=== PATIENT | female | born 1945 | race Caucasian/White ===

== ENCOUNTER 2018-01-08 16:38 | Inpatient (IN) | payer MEDICARE, OTHER ==
[~2018-01-08] VITALS: Ht 154.9 cm; Wt 43.8 kg
--- NOTE | 2018-01-08 17:36 | EKG ---
[address] [address] Test Date: 2018-01-08 Test Time: 17:33:35 Pat Name: OSCAR BORRERO Department: Room: Gender: F Metallurgical Engineer: : 1945 Requested By: DASHA PRAJAPATI Order Number: [id number] Reading MD: Yordan Walker MD Measurements Intervals [place] Rate: 67 P: 52 DE: 144 QRS: 73 QRSD: 78 T: 38 QT: 410 QTc: 436 Interpretive Statements SINUS RHYTHM Electronically Signed On 01-13-2018 11:02:34 MEDICAL STAFF CREDENTIALING COORDINATOR by Yordan Walker MD
[2018-01-08 17:38] LABS: BASO % 1 % (0-3); EOS # 0.1 x10^3/uL (0.0-0.7); EOS % 2 % (0-3); HEMATOCRIT 38.2 % (36.0-47.0); HEMOGLOBIN 12.7 g/dL (12.0-15.5); LYMPH # 1.4 x10^3/uL (1.0-4.8); LYMPH % 23 % (24-48); MEAN CORPUSCULAR HEMOGLOBIN 31 pg (25-35); MEAN CORPUSCULAR HGB CONC 33 g/dL (31-37); MEAN CORPUSCULAR VOLUME 94 fL (79-100); MONO # 0.9 x10^3/uL (0.0-1.1); MONO % 15 % (0-9); NEUT # 3.7 x10^3uL (1.8-7.7); NEUT % 60 % (31-73); PLATELET COUNT 164 x10^3/uL (140-400); RED BLOOD COUNT 4.08 x10^6/uL (3.50-5.40); WHITE BLOOD COUNT 6.2 x10^3/uL (4.0-11.0)
[2018-01-08 17:52] LABS: ALBUMIN 3.4 g/dL (3.4-5.0); CALCIUM 8.8 mg/dL (8.5-10.1); CREATININE 0.8 mg/dL (0.6-1.0); GFR 70.1; MAGNESIUM 2.2 mg/dL (1.8-2.4); POTASSIUM 3.5 mmol/L (3.5-5.1); TOTAL BILIRUBIN 0.4 mg/dL (0.2-1.0); TOTAL PROTEIN 6.8 g/dL (6.4-8.2)
--- NOTE | 2018-01-08 18:46 | RAD ---
EXAM: Chest, single view. HISTORY: Mental status changes. Chest pain COMPARISON: None. FINDINGS: A frontal view of the chest is obtained. There is no infiltrate, pleural effusion or pneumothorax. The heart is normal in size. There is suspected left infrahilar atelectasis. IMPRESSION: Suspected left infrahilar atelectasis. Electronically signed by: Sandra Romano MD (01/08/2018 6:43 PM) [facility]
[2018-01-08] MEDS ORDERED: IV NORMAL SALINE 1,000ML 1,000 ML IV ONE (19:30)
[2018-01-08] MEDS ORDERED: cefTRIAXone SODIUM 1 GM VIAL IV ONE (19:32)
[2018-01-08] MEDS ORDERED: IV NORMAL SALINE 50ML 50 ML ONE (19:32)
[2018-01-08] MEDS ORDERED: IV NORMAL SALINE 1,000ML 1,000 ML IV SCH (19:45)
[2018-01-08] MEDS ORDERED: ACETAMINOPHEN 325 MG TABLET PO PRN (19:45)
[2018-01-08] MEDS ORDERED: ONDANSETRON PF 4 MG/2 ML VIAL. IV PRN (19:45)
--- NOTE | 2018-01-08 19:53 | PHYS DOC ---
Adult General Chief Complaint Chief Complaint Confusion HPI HPI pleasant 72 years old female with history of dementia was seen and evaluated by her primary care provider diagnosed with UTI based on Keflex and Zyprexa for confusion that started 2 days ago most of the history was taken from the family who stated there are worried about her rashes seen horses in the living room stay in up all night not sleeping very much from the family there is no other symptoms Review of Systems Review of Systems Very limited due to patient's mental status Current Medications Current Medications Current Medications Medications (Trade) Dose Ordered Sig/Dano Start Time Stop Time Status Last Admin Dose Admin Ceftriaxone Sodium 1 gm/ Sodium Chloride 50 ml @ 100 mls/hr 1X ONCE 01/08/18 19:30 01/08/18 19:59 Ceftriaxone Sodium (Rocephin) 1 gm STK-MED ONCE 01/08/18 19:32 01/08/18 19:33 DC Sodium Chloride 50 ml @ As Directed STK-MED ONCE 01/08/18 19:32 01/08/18 19:33 DC Allergies Allergies Allergies Coded Allergies Type Severity Reaction Last Updated Verified Penicillins Allergy Unknown 01/08/18 Yes acetaminophen Allergy Unknown 01/08/18 Yes amitriptyline Allergy Unknown 01/08/18 Yes aspirin Allergy Unknown 01/08/18 Yes caffeine Allergy Unknown 01/08/18 Yes codeine Allergy Unknown 01/08/18 Yes cyclobenzaprine Allergy Unknown 01/08/18 Yes fentanyl Allergy Unknown 01/08/18 Yes iodine Allergy Unknown 01/08/18 Yes morphine Allergy Unknown 01/08/18 Yes orphenadrine Allergy Unknown 01/08/18 Yes oxycodone Allergy Unknown 01/08/18 Yes pantoprazole Allergy Unknown 01/08/18 Yes povidone-iodine Allergy Unknown 01/08/18 Yes propoxyphene Allergy Unknown 01/08/18 Yes soap Allergy Unknown 01/08/18 Yes tetanus toxoid, adsorbed Allergy Unknown 01/08/18 Yes Physical Exam Physical Exam ] HENT: Normocephalic, atraumatic, bilateral external ears normal, oropharynx dry , no oral exudates, nose normal. [] Eyes: PERRLA, EOMI, conjunctiva normal, no discharge. [] Neck: Normal range of motion, no tenderness, supple, no stridor. [] Cardiovascular:Heart rate regular rhythm, no murmur [] Lungs & Thorax: Bilateral breath sounds clear to auscultation [] Abdomen: Bowel sounds normal, soft, no tenderness, no masses, no pulsatile masses. [] Skin: Warm, dry, no erythema, no rash. [] Back: No tenderness, no CVA tenderness. [] Extremities: No tenderness, no cyanosis, no clubbing, ROM intact, no edema. [] Neurologic: Alert and oriented X 3, normal motor function, normal sensory function, no focal deficits noted. [] Psychologic: Affect normal, judgement normal, mood normal. [] Current Patient Data Vital Signs Vital Signs Date Time Temp Pulse Resp B/P (MAP) Pulse Ox O2 Delivery O2 Flow Rate FiO2 01/08/18 16:38 98.1 63 18 98 Room Air Lab Results Laboratory Tests Test 01/08/18 17:20 White Blood Count 6.2 x10^3/uL (4.0-11.0) Red Blood Count 4.08 x10^6/uL (3.50-5.40) Hemoglobin 12.7 g/dL (12.0-15.5) Hematocrit 38.2 % (36.0-47.0) Mean Corpuscular Volume 94 fL (79-100) Mean Corpuscular Hemoglobin 31 pg (25-35) Mean Corpuscular Hemoglobin Concent 33 g/dL (31-37) Red Cell Distribution Width 13.0 % (11.5-14.5) Platelet Count 164 x10^3/uL (140-400) Neutrophils (%) (Auto) 60 % (31-73) Lymphocytes (%) (Auto) 23 % (24-48) L Monocytes (%) (Auto) 15 % (0-9) H Eosinophils (%) (Auto) 2 % (0-3) Basophils (%) (Auto) 1 % (0-3) Neutrophils # (Auto) 3.7 x10^3uL (1.8-7.7) Lymphocytes # (Auto) 1.4 x10^3/uL (1.0-4.8) Monocytes # (Auto) 0.9 x10^3/uL (0.0-1.1) Eosinophils # (Auto) 0.1 x10^3/uL (0.0-0.7) Basophils # (Auto) 0.0 x10^3/uL (0.0-0.2) Sodium Level 139 mmol/L (136-145) Potassium Level 3.5 mmol/L (3.5-5.1) Chloride Level 103 mmol/L (98-107) Carbon Dioxide Level 29 mmol/L (21-32) Anion Gap 7 (6-14) Blood Urea Nitrogen 25 mg/dL (7-20) H Creatinine 0.8 mg/dL (0.6-1.0) Estimated GFR (Cockcroft-Gault) 70.1 BUN/Creatinine Ratio 31 (6-20) H Glucose Level 88 mg/dL (70-99) Calcium Level 8.8 mg/dL (8.5-10.1) Magnesium Level 2.2 mg/dL (1.8-2.4) Total Bilirubin 0.4 mg/dL (0.2-1.0) Aspartate Amino Transferase (AST) 23 U/L (15-37) Alanine Aminotransferase (ALT) 23 U/L (14-59) Alkaline Phosphatase 85 U/L (46-116) Total Protein 6.8 g/dL (6.4-8.2) Albumin 3.4 g/dL (3.4-5.0) Albumin/Globulin Ratio 1.0 (1.0-1.7) EKG EKG [] Radiology/Procedures Radiology/Procedures [] Course & Med Decision Making Course & Med Decision Making Pertinent Labs and Imaging studies reviewed. (See chart for details) [] Final Impression Final Impression Family refused psych consult requested to be admitted to medicine I discussed her case with the psychiatrist on-call who recommended to give IV fluids and IV antibiotic treatment for UTI and if she does not improve they will be happy to see her Psychiatry also stated that they do not mind seems and Zyprexa or Haldol for delirium induced by UTI[] Problems: (1) Delirium due to another medical condition Dragon Disclaimer Dragon Disclaimer This electronic medical record was generated, in whole or in part, using a voice recognition dictation system. NOMI MCPHERSON MD Jan 08, 2018 19:53
[2018-01-08 20:32] LABS: BACTERIA,URINE 0 /HPF (0-FEW); BILIRUBIN,URINE NEG (NEG); CLARITY,URINE CLEAR; COLOR,URINE YELLOW; GLUCOSE,URINE NEG (NEG); NITRITE,URINE NEG (NEG); RBC,URINE 0 /HPF (0-2); SQUAMOUS EPITHELIAL CELL,UR OCC /LPF; UROBILINOGEN,URINE 0.2 mg/dL (0.2 mg/dL); WBC,URINE OCC /HPF (0-4)
--- NOTE | 2018-01-08 20:50 | NUR ---
ADMISSION: The patient, OSCAR BORRERO, 72 y/o, F admitted by ADRIANA OGLESBY DO, was given written information regarding hospital policies, unit procedures and contact persons. Pt arrived to room 124 via gurney, accompanied by [facility], ED staff, and family. Pt here for increased confusion and UTI, failed outpatient therapy. Pt had been prescribed Keflex PO by her PCP and family reports she has taken 3 doses, but her confusion is worsened and pt is having visual hallucinations (seeing horses in the living room) as well as not sleeping at night. Pt lives at home with her . Their son, Mikhail, is involved but lives over an hour away. Family wishes to speak with insurance case manager about possible HH support, consult placed. Pt received Rocephin 1gm IV and has 1L NS bolus running. Pt sleepy, A/O self only but cooperative with assessment and cares. PMH and home meds obtained from family. Bed in lowest position with alarm set for safety. Call light in reach. Will monitor. Valuables were checked and logged.
[2018-01-08 20:58] VITALS: BP 168/90
[2018-01-08] MEDS ORDERED: CEPH500C PO (21:59)
[2018-01-08] MEDS ORDERED: OLAN2.5T11 PO (21:59)
[2018-01-08] MEDS ORDERED: DULO30CA43 PO (21:59)
[2018-01-08] MEDS ORDERED: POLY255P PO (21:59)
[2018-01-08] MEDS ORDERED: MULT1TAB52 PO (21:59)
[2018-01-08] MEDS ORDERED: CALC1TAB67 PO (21:59)
[2018-01-08 22:42] VITALS: BP 138/89
[2018-01-09 05:03] VITALS: BP 146/79
[2018-01-09] MEDS: OLANZapine 5 MG TABLET PO SCH (09:00)
[2018-01-09 10:51] VITALS: BP 173/85
[2018-01-09 14:50] VITALS: BP 120/74
[2018-01-09] MEDS ORDERED: IV NORMAL SALINE 1,000ML 1,000 ML IV SCH (15:55)
--- NOTE | 2018-01-09 16:03 | PDOC1 ---
History and Physical Date of Admission: Date of Admission: 01/09/18 Chief Complaint: Chief Complain: UTI, confusion Source: Source: Caregiver, Chart review, Patient HPI: HPI: Pt is pleasant 72 years old female with history of dementia was seen and evaluated by her primary care provider Saturday diagnosed with UTI placed on Keflex and Zyprexa for confusion that started 2 days ago. Most of the history was taken from the ED chart and multiple family members at bedside. They report that their primary concern is the rapid worsening of patient's dementia who began hallucinating/sundowning at night a few nights ago patient reportedly seeing horses in the living room and staying up all hours not sleeping very much. From the patient and family there are no other symptoms. Patient placed on rocephin in ED and on admission, family reports patient mentation greatly improved. UA unremarkable here her labs indicate hypovolemia otherwise unremarkable. I find patient lying in bed with multiple family members at bedside. They reportedly refused [facility] admission which is reportedly why patient was sent here initially. All deny any new/worsening symptoms. Past Medical History: PMH: Only reported PMH is dementia Past Surgical History: PSH: no pertinent Social History: Smoke: No Alcohol: none Drugs: None Allergies: Allergies: Coded Allergies: Penicillins (Verified Allergy, Unknown, 01/08/18) acetaminophen (Verified Allergy, Unknown, 01/08/18) amitriptyline (Verified Allergy, Unknown, 01/08/18) aspirin (Verified Allergy, Unknown, 01/08/18) caffeine (Verified Allergy, Unknown, 01/08/18) codeine (Verified Allergy, Unknown, 01/08/18) cyclobenzaprine (Verified Allergy, Unknown, 01/08/18) fentanyl (Verified Allergy, Unknown, 01/08/18) iodine (Verified Allergy, Unknown, 01/08/18) morphine (Verified Allergy, Unknown, 01/08/18) orphenadrine (Verified Allergy, Unknown, 01/08/18) oxycodone (Verified Allergy, Unknown, 01/08/18) pantoprazole (Verified Allergy, Unknown, 01/08/18) povidone-iodine (Verified Allergy, Unknown, 01/08/18) propoxyphene (Verified Allergy, Unknown, 01/08/18) soap (Verified Allergy, Unknown, 01/08/18) tetanus toxoid, adsorbed (Verified Allergy, Unknown, 01/08/18) Current Medications: Current Medications: Current Medications Medications (Trade) Dose Ordered Sig/Dano Start Time Stop Time Status Last Admin Dose Admin Acetaminophen (Tylenol) 650 mg PRN Q4HRS PRN 01/08/18 19:45 01/09/18 19:44 Ceftriaxone Sodium 1 gm/ Sodium Chloride 50 ml @ 100 mls/hr Q24H 01/09/18 16:00 UNV Ceftriaxone Sodium (Rocephin) 1 gm STK-MED ONCE 01/08/18 19:32 01/08/18 19:33 DC Olanzapine (ZyPREXA) 5 mg DAILY 01/09/18 09:00 Ondansetron HCl (Zofran) 4 mg PRN Q4HRS PRN 01/08/18 19:45 01/09/18 19:44 Sodium Chloride 1,000 ml @ 150 mls/hr Q6H40M 01/09/18 15:55 01/09/18 22:34 UNV ROS: ROS: Constitutional: No fever or chills Eyes: No eye pain or blurred vision Skin: No rash or itching Cardiovascular: No chest pain, syncope, palpitations, dyspnea on exertion, or edema Respiratory: No cough or difficulty breathing Gastrointestinal: No nausea, vomiting, or abdominal pain Neurologic: No headaches or focal neurologic deficits Endocrine: No heat or cold intolerance Genitourinary: No incontinence or hematuria Musculoskeletal: No joint pain or swelling Lymphatics: No enlarged lymph nodes Psychiatric: worsening confusion/dementia PE: PE: Gen.: Alert, pleasant, no apparent distress HEENT: Normocephalic atraumatic, PERRLA EOMI, no scleral icterus, oral mucosa pink and moist Neck: Supple, no lymphadenopathy, nontender Cardiovascular: Normal S1 and S2 no murmurs Pulmonary: Lungs are clear bilaterally with good air movement no respiratory distress Abdomen: Soft nontender non-distended, bowel sounds present no masses Extremities: No clubbing, cyanosis or edema Neuro: Alert does not appear confused, cranial nerves II through XII grossly intact, no lateralizing neuro deficits Skin: Warm, dry Vitals: Vitals: Vital Signs Date Time Temp Pulse Resp B/P (MAP) Pulse Ox O2 Delivery O2 Flow Rate FiO2 01/09/18 14:50 98.9 101 20 120/74 (89) 98 Room Air Labs: Labs: Laboratory Tests Test 01/08/18 17:20 01/08/18 19:55 White Blood Count 6.2 x10^3/uL (4.0-11.0) Red Blood Count 4.08 x10^6/uL (3.50-5.40) Hemoglobin 12.7 g/dL (12.0-15.5) Hematocrit 38.2 % (36.0-47.0) Mean Corpuscular Volume 94 fL (79-100) Mean Corpuscular Hemoglobin 31 pg (25-35) Mean Corpuscular Hemoglobin Concent 33 g/dL (31-37) Red Cell Distribution Width 13.0 % (11.5-14.5) Platelet Count 164 x10^3/uL (140-400) Neutrophils (%) (Auto) 60 % (31-73) Lymphocytes (%) (Auto) 23 % (24-48) Monocytes (%) (Auto) 15 % (0-9) Eosinophils (%) (Auto) 2 % (0-3) Basophils (%) (Auto) 1 % (0-3) Neutrophils # (Auto) 3.7 x10^3uL (1.8-7.7) Lymphocytes # (Auto) 1.4 x10^3/uL (1.0-4.8) Monocytes # (Auto) 0.9 x10^3/uL (0.0-1.1) Eosinophils # (Auto) 0.1 x10^3/uL (0.0-0.7) Basophils # (Auto) 0.0 x10^3/uL (0.0-0.2) Sodium Level 139 mmol/L (136-145) Potassium Level 3.5 mmol/L (3.5-5.1) Chloride Level 103 mmol/L (98-107) Carbon Dioxide Level 29 mmol/L (21-32) Anion Gap 7 (6-14) Blood Urea Nitrogen 25 mg/dL (7-20) Creatinine 0.8 mg/dL (0.6-1.0) Estimated GFR (Cockcroft-Gault) 70.1 BUN/Creatinine Ratio 31 (6-20) Glucose Level 88 mg/dL (70-99) Calcium Level 8.8 mg/dL (8.5-10.1) Magnesium Level 2.2 mg/dL (1.8-2.4) Iron Level 39 ug/dL (50-170) Total Iron Binding Capacity 290 ug/dL (250-450) Iron Saturation 13 % (15-34) Total Bilirubin 0.4 mg/dL (0.2-1.0) Aspartate Amino Transf (AST/SGOT) 23 U/L (15-37) Alanine Aminotransferase (ALT/SGPT) 23 U/L (14-59) Alkaline Phosphatase 85 U/L (46-116) Total Protein 6.8 g/dL (6.4-8.2) Albumin 3.4 g/dL (3.4-5.0) Albumin/Globulin Ratio 1.0 (1.0-1.7) Vitamin B12 Level 322 pg/mL (247-911) Urine Collection Type Unknown Urine Color Yellow Urine Clarity Clear Urine pH 6.0 Urine Specific [place] 1.010 Urine Protein Neg (NEG-TRACE) Urine Glucose (UA) Neg mg/dL (NEG) Urine Ketones (Stick) Neg mg/dL (NEG) Urine Blood Neg (NEG) Urine Nitrite Neg (NEG) Urine Bilirubin Neg (NEG) Urine Urobilinogen Dipstick 0.2 mg/dL (0.2 mg/dL) Urine Leukocyte Esterase Neg (NEG) Urine RBC 0 /HPF (0-2) Urine WBC Occ /HPF (0-4) Urine Squamous Epithelial Cells Occ /LPF Urine Transitional Epithelial Cells Occ /LPF Urine Bacteria 0 /HPF (0-FEW) VTE Prophylaxis: VTE Prophylaxis Devices: No VTE Pharmacological Prophylaxi: No Assessment/Plan: A/P: UTI Worsening baseline dementia likely 2nd to above Dehydration Continue rocephin, await culture/sensitivity report from specimen collected two days ago. Psychiatry consultation ADRIANA Steiner DO Jan 09, 2018 16:03
[2018-01-09 18:45] VITALS: BP 122/78
--- NOTE | 2018-01-09 21:25 | NUR ---
Pt c/o increasing pain to back and neck. Kpad is in place. Family reports pt normally takes Cymbalta 30mg PO daily for chronic pain. Pt has not received this today. Dr. Sanchez paged and call back received. Notified of pt status and ordered for Cymbalta 30mg 1x now but wishes to defer to Dr. Booker for further dosing recommendations. Psych consult was faxed to [phone] on previous shift.
[2018-01-09] MEDS ORDERED: DULoxetine HCL 30 MG CAPSULE.DR PO ONE (21:30)
[2018-01-09 23:59] VITALS: BP 149/83
[2018-01-10 05:01] VITALS: BP 134/80
[2018-01-10 06:30] LABS: BASO % 0 % (0-3); EOS % 1 % (0-3); HEMATOCRIT 37.9 % (36.0-47.0); HEMOGLOBIN 12.7 g/dL (12.0-15.5); LYMPH # 1.2 x10^3/uL (1.0-4.8); LYMPH % 16 % (24-48); MEAN CORPUSCULAR HEMOGLOBIN 31 pg (25-35); MEAN CORPUSCULAR HGB CONC 34 g/dL (31-37); MEAN CORPUSCULAR VOLUME 93 fL (79-100); MONO % 13 % (0-9); NEUT # 5.5 x10^3uL (1.8-7.7); NEUT % 71 % (31-73); PLATELET COUNT 167 x10^3/uL (140-400); RED BLOOD COUNT 4.09 x10^6/uL (3.50-5.40); RED CELL DISTRIBUTION WIDTH 12.8 % (11.5-14.5); WHITE BLOOD COUNT 7.8 x10^3/uL (4.0-11.0)
[2018-01-10 06:32] LABS: CALCIUM 8.5 mg/dL (8.5-10.1); CREATININE 0.7 mg/dL (0.6-1.0); GFR 81.8; POTASSIUM 3.2 mmol/L (3.5-5.1)
--- NOTE | 2018-01-10 06:53 | NUR ---
Nursing: Pt awake through much of noc. Impulsive, repeatedly attempting to climb over bed rail to "check on the kids" and sounding bed alarm. Unable to reorient to hospital and situation.
[2018-01-10] MEDS: LACTOBACILLUS RHAMNOSUS GG 1 CAPSULE. PO SCH ×2 (11:22→20:29)
[2018-01-10] MEDS: OLANZapine 5 MG TABLET PO SCH (11:22)
[2018-01-10 13:45] VITALS: BP 128/78
[2018-01-10] MEDS ORDERED: ACETAMINOPHEN 325 MG TABLET PO PRN (14:30)
[2018-01-10 16:02] VITALS: BP 113/70
--- NOTE | 2018-01-10 19:54 | NUR ---
NSG NOTE; FAMILY REFUSAL ON ADMIT TO [facility] INITIALLY AGREED TO PLACE PT ON [facility] FOR MEDICATION ADJUSTMENT FOR HER BEHAVIORS. SAVANNAH RN CAME DOWN TO EXPLAIN HOW THE UNIT WORKS WITH VISITING HOURS OF 1 HOUR TWICE DAILY. THE PT'S FINDS THIS UNACCEPTABLE HE WANTS TO BE ABLE TO SPEND MORE TIME WITH HER EACH DAY, SO HE HAS NOW REFUSED TO ADMIT HER TO [facility]. THE AND SON ARE WORKING ON ALTERNATE PLANS AT HOME TO KEEP THE PT SAFE, AND ALSO POSSIBLE TEMPORARY PLACEMENT SOMEWHERE THAT HAS LONGER VISITING HOURS.
[2018-01-10 20:00] VITALS: BP 131/79
--- NOTE | 2018-01-10 22:04 | PDOC ---
Progress Note. Subjective: Nursing overnight reports fairly severe sundowning behavior as patient repeatedly tried to climb over her bedrails to check on kids. When I evaluate her today with family present they report that her mentation seems better although I do not notice any change. Patient's and other family are present and I spent a great deal of time talking with all of them and answering their questions. For some reason they don't want patient admitted to [facility] unit. I spent a great deal of time describing the unit and the unique specialized care patient would receive. Other than her sundowning behavior which has been noted at home and is likely worse here due to unfamiliar surroundings and possibly UTI patient is medically stable to leave the medical floor. Family asked my opinion. I agreed that they could take her home on PO vantin, but with her activities at night she is at great risk for a fall. I reviewed with them the prognosis for patient's age/ weight should she fall and suffer hip fracture. I strongly encouraged family toward [facility] admission for continued abx and treatment per Dr Booker. The family went back and forth over this decision, I went to patient's room multiple times to speak with family and answer additional questions. When I left for the last time the family had agreed [facility]. Patient is confused. Every 15 minutes or so she will cry out in pain and request to be readjusted in her bed, apparently she has had several back surgeries. No new or recent injuries, no saddle anesthesia or new bowel/ bladder sx, no new weakness in the legs. Nursing reports patient has been ambulatory and thus no DVT prophylaxis. RN also reports that she has contacted initial treating physician for UTI. Unfortunately no urine culture was performed. Objective: Vital Signs: Vital Signs Date Time Temp Pulse Resp B/P (MAP) Pulse Ox O2 Delivery O2 Flow Rate FiO2 01/10/18 20:00 98.1 103 20 131/79 (96) 99 Room Air I & O: Intake and Output 01/10/18 07:00 Intake Total 1820 ml Output Total 1500 ml Balance 320 ml Intake Oral 820 ml IV Total 1000 ml Output Urine Total 1500 ml Labs: Laboratory Tests Test 01/10/18 05:55 White Blood Count 7.8 x10^3/uL (4.0-11.0) Red Blood Count 4.09 x10^6/uL (3.50-5.40) Hemoglobin 12.7 g/dL (12.0-15.5) Hematocrit 37.9 % (36.0-47.0) Mean Corpuscular Volume 93 fL (79-100) Mean Corpuscular Hemoglobin 31 pg (25-35) Mean Corpuscular Hemoglobin Concent 34 g/dL (31-37) Red Cell Distribution Width 12.8 % (11.5-14.5) Platelet Count 167 x10^3/uL (140-400) Neutrophils (%) (Auto) 71 % (31-73) Lymphocytes (%) (Auto) 16 % (24-48) Monocytes (%) (Auto) 13 % (0-9) Eosinophils (%) (Auto) 1 % (0-3) Basophils (%) (Auto) 0 % (0-3) Neutrophils # (Auto) 5.5 x10^3uL (1.8-7.7) Lymphocytes # (Auto) 1.2 x10^3/uL (1.0-4.8) Monocytes # (Auto) 1.0 x10^3/uL (0.0-1.1) Eosinophils # (Auto) 0.0 x10^3/uL (0.0-0.7) Basophils # (Auto) 0.0 x10^3/uL (0.0-0.2) Sodium Level 135 mmol/L (136-145) Potassium Level 3.2 mmol/L (3.5-5.1) Chloride Level 102 mmol/L (98-107) Carbon Dioxide Level 28 mmol/L (21-32) Anion Gap 5 (6-14) Blood Urea Nitrogen 11 mg/dL (7-20) Creatinine 0.7 mg/dL (0.6-1.0) Estimated GFR (Cockcroft-Gault) 81.8 Glucose Level 118 mg/dL (70-99) Calcium Level 8.5 mg/dL (8.5-10.1) Physical Exam: Gen.: Alert, pleasant, confused, no apparent distress HEENT: Normocephalic atraumatic, no scleral icterus, oral mucosa pink and moist Neck: Supple, no lymphadenopathy, nontender Cardiovascular: Normal S1 and S2 no murmurs Pulmonary: Lungs are clear bilaterally with good air movement no respiratory distress Abdomen: Soft nontender non-distended, bowel sounds present no masses Extremities: No clubbing, cyanosis or edema Neuro: Alert and confused, appears generally weak w/o lateralizing deficit Skin: Warm, dry Assessment: UTI: clinical improvement on rocephin Worsening baseline dementia with sundowning: Dr Booker consultation pending Dehydration: resolved with hydration Hypokalemia: electrolyte protocol 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 I fear if family takes her home she could suffer fall injury as stated above. Hopefully family will all come to consensus after Dr Booker has evaluated the patient and offered recommendations. ADRIANA OGLESBY DO Jan 10, 2018 22:04
--- NOTE | 2018-01-10 22:50 | NUR ---
Patient has tried many times to crawl over bed rail, she is hallucinating. Called Dr. Booker after many attempts to redirect. Got new order for SAIMA dixon. Have a nurse sitting with patient at this time for safety.
[2018-01-11 05:09] VITALS: BP 166/82
--- NOTE | 2018-01-11 06:17 | NUR ---
Patient did not sleep at all tonight, staff sat with patient all night for safety. Pt was hallucinating grabbing at air. Patient screaming out. Gave Zydis but it did not help patient. Bed alarm set for safety. Staff still sitting at bedside at this time.
[2018-01-11] MEDS: OLANZapine 5 MG TABLET PO SCH (09:41)
[2018-01-11] MEDS: LACTOBACILLUS RHAMNOSUS GG 1 CAPSULE. PO SCH (09:42)
--- NOTE | 2018-01-11 12:24 | PDOC ---
Exam Note: Wood Note: Please also refer to the separate dictated note~for this date of service dictated separately.~Patient seen individually. Discussed the patient with Nursing staff reviewed the chart.~Reviewed interim history and current functioning. Reviewed vital signs,~Labs/ Radiology~and current medications noted below. Continue current treatment with the changes noted in the dictated addendum note. This is late entry for 01/10/18 Assessment: Vital Signs: VS - Last 72 Hours, by Label Date Time Temp Pulse Resp B/P (MAP) Pulse Ox O2 Delivery O2 Flow Rate FiO2 01/11/18 12:08 18 01/11/18 08:00 Room Air 01/11/18 05:09 98.3 108 18 166/82 (110) 99 Room Air 01/10/18 23:00 Room Air 01/10/18 20:00 98.1 103 20 131/79 (96) 99 Room Air 01/10/18 20:00 Room Air 01/10/18 16:02 98.2 106 20 113/70 (84) 98 Room Air 01/10/18 13:45 97.6 68 20 128/78 (95) 94 Room Air 01/10/18 08:00 Room Air 01/10/18 05:01 98.3 103 18 134/80 (98) 95 Room Air 01/09/18 23:59 98.9 99 18 149/83 (105) 96 Room Air 01/09/18 20:00 Room Air 01/09/18 18:45 98.5 104 20 122/78 (93) 97 Room Air 01/09/18 14:50 98.9 101 20 120/74 (89) 98 Room Air 01/09/18 10:51 98.6 89 20 173/85 (114) 96 Room Air 01/09/18 08:00 Room Air 01/09/18 05:03 98.0 83 16 146/79 (101) 96 Room Air 01/08/18 22:42 97.7 68 18 138/89 (105) 99 Room Air 01/08/18 21:00 Room Air 01/08/18 20:58 97.7 64 20 168/90 (116) 94 Room Air 01/08/18 16:38 98.1 63 18 98 Room Air Vital Signs Date Time Temp Pulse Resp B/P (MAP) Pulse Ox O2 Delivery O2 Flow Rate FiO2 01/11/18 12:08 18 01/11/18 08:00 Room Air 01/11/18 05:09 98.3 108 166/82 (110) 99 I&O Intake and Output 01/11/18 07:00 Intake Total 840 ml Balance 840 ml Intake Oral 840 ml # Voids 4 # Bowel Movements 3 Current Medications: Meds: Current Medications Sodium Chloride 1,000 ml @ 1,000 mls/hr 1X ONCE IV Last administered on at 20:14; Start 01/08/18 at 19:30; Stop 01/08/18 at 20:29; Status DC Ceftriaxone Sodium 1 gm/ Sodium Chloride 50 ml @ 100 mls/hr 1X ONCE IV Last administered on 01/08/18at 20:13; Start 01/08/18 at 19:30; Stop 01/08/18 at 19:59 ; Status DC Sodium Chloride 50 ml @ As Directed STK-MED ONCE .ROUTE ; Start 01/08/18 at 19: 32; Stop 01/08/18 at 19:33; Status DC Ceftriaxone Sodium (Rocephin) 1 gm STK-MED ONCE IV ; Start 01/08/18 at 19:32; Stop 01/08/18 at 19:33; Status DC Ondansetron HCl (Zofran) 4 mg PRN Q4HRS PRN IV NAUSEA/VOMITING; Start 01/08/18 at 19:45; Stop 01/09/18 at 19:44; Status DC Sodium Chloride 1,000 ml @ 0 mls/hr Q0M IV ; Start 01/08/18 at 19:45; Stop 01/09/18 at 19:37; Status DC Acetaminophen (Tylenol) 650 mg PRN Q4HRS PRN PO FEVER; Start 01/08/18 at 19:45 ; Stop 01/09/18 at 19:44; Status DC Olanzapine (ZyPREXA) 5 mg DAILY PO Last administered on 01/11/18at 09:41; Start 01/09/18 at 09:00 Ceftriaxone Sodium 1 gm/ Sodium Chloride 50 ml @ 100 mls/hr DAILY IV Last administered on 01/09/18at 13:18; Start 01/09/18 at 09:00; Stop 01/09/18 at 16:11 ; Status DC Ceftriaxone Sodium 1 gm/ Sodium Chloride 50 ml @ 100 mls/hr Q24H IV ; Start at 16:00; Stop 01/10/18 at 16:00; Status DC Sodium Chloride 1,000 ml @ 150 mls/hr Q6H40M IV Last administered on at 16:31; Start 01/09/18 at 15:55; Stop 01/09/18 at 22:34; Status DC Duloxetine HCl (Cymbalta) 30 mg 1X ONCE PO Last administered on 01/09/18at 21: 58; Start 01/09/18 at 21:30; Stop 01/09/18 at 21:35; Status DC Lactobacillus Rhamnosus (Culturelle) 1 cap BID PO Last administered on at 09:42; Start 01/10/18 at 09:00 Ceftriaxone Sodium 1 gm/ Sodium Chloride 50 ml @ 100 mls/hr Q24H IV Last administered on 01/10/18at 14:48; Start 01/10/18 at 13:00 Acetaminophen (Tylenol) 650 mg PRN Q6HRS PRN PO PAIN / TEMP Last administered on 01/10/18at 14:47; Start 01/10/18 at 14:30 Olanzapine (ZyPREXA ZYDIS) 2.5 mg PRN Q2HR PRN PO PSYCHOSIS Last administered on 01/11/18at 01:51; Start 01/10/18 at 23:00 Active Scripts Active Reported Calcitrate + Vit D Caplet (Calcium Citrate/Vitamin D3) 1 Each Tablet 1 Each PO DAILY Multivitamins (Multivitamin) 1 Each Tablet 1 Tab PO DAILY Polyethylene Glycol 3350 255 Gm Powder 17 Gm PO PRN DAILY PRN Duloxetine Hcl 30 Mg Capsule. 30 Mg PO DAILY Olanzapine 2.5 Mg Tablet 2.5 Mg PO BID Cephalexin 500 Mg Capsule 500 Mg PO BID FAMILY REPORTS PT HAS RECEIVED 3 DOSES I have reviewed the current psychotropics carefully including drug interactions. Risk benefit ratio favors no change other than as noted in my dictated progress note. Diagnosis: Problems: (1) Anxiety disorder (2) Dementia, vascular, with delusions (3) Dementia, vascular, with depression (4) Dementia in Alzheimer's disease with depression (5) Dementia in Alzheimer's disease with delusions GLADYS SINGH MD Jan 11, 2018 12:24
--- NOTE | 2018-01-11 13:47 | CONS ---
DATE OF CONSULTATION: 01/10/2018 PSYCHIATRIC CONSULTATION This is a late entry, 01/10/2018, covers elements not covered in my initial note. IDENTIFYING DATA: The patient is a 72-year-old female seen in bed [address], [address] [place] [address] for psychiatric consult requested by Dr. Sanchez on account of worsening confusion and delusions within the context of her recent UTI. The patient has been hallucinating, gets worse in the evening. She had been living at home with her and walking out of their home at night and at one point had walked to the local [place]. With the temperature dropping down into the teens, there was a concern that if she were to do this when she returns back home, it could be potentially very dangerous. I have been asked to consult and make recommendation from a psychiatric standpoint. We did screen her for [facility] and the power of assistant city attorney paperwork was not available. It has since then been procured and as noted below given all the information and my visit with her the evening of 01/10/2018 together with meeting with the patient's son and daughter and son-in-law, it is evident that she would benefit from inpatient psychiatric stabilization for her psychosis, agitation before she returns home after the family has had a chance to make safety arrangements at home. CHIEF COMPLAINT: "No." As I met with the patient initially, I asked her to introduce me to all her family in the room with her and she was unable to name any of them. The daughter was sitting by her side and stated that earlier, she had been able to recognize the daughter. HISTORY OF PRESENT ILLNESS: The patient has a history of dementia, Alzheimer's vascular type. She has been residing at home with her , recently getting more confused. She was taken to the ER, got a dose of antibiotic for possible UTI, but when she was brought to [place], reportedly repeat UA was negative. She has had sleep and appetite changes. No active suicidal or homicidal ideation. PAST PSYCHIATRIC HISTORY: Positive for progressive memory deficits. CODE STATUS: Full code. ALLERGIES: PENICILLIN, TYLENOL, AMITRIPTYLINE, ASPIRIN, CAFFEINE, CODEINE, CYCLOBENZAPRINE, FENTANYL, IODINE, MORPHINE, ORPHENADRINE, OXYCODONE, PROTONIX, POVIDONE, IODINE, PROPOXYPHENE, SOAP, and TETANUS TOXOID. FAMILY HISTORY: Noncontributory. SOCIAL HISTORY: No alcohol or drug abuse history is noted. She lives at home with her . MENTAL STATUS EXAM: The patient was seen individually evening of 01/10/2018. She is oriented to herself. She is not very verbal. Insight, judgment, recent and remote memory, attention, concentration, fund of knowledge poor consistent with her diagnosis. IMPRESSION: Major neurocognitive disorder, Alzheimer, vascular with depression, delusions; anxiety disorder, unspecified; impulse control disorder, unspecified; status post urinary tract infection. RECOMMENDATION: From a psychiatric standpoint, CT head is not completed. I would recommend this be done if not done in the past week or so. We will add Zyprexa p.r.n. In fact, I was called around 11:30 right prior to midnight. The patient was getting increasingly psychotic and hallucinating. We have added Zyprexa p.r.n. Family is not willing to transfer her to the [facility] because of limited visiting hours. I will have to leave this decision to them, but my recommendation was inpatient psychiatric stabilization prior to returning home or a more structured setting if they are unable to have adequate safety precautions in the home. Dr. Sanchez, thank you for the opportunity to participate in your patient's care. We will follow with you. GLADYS SINGH MD DR: JAMES/sonya JOB#: [id number] / [id number]
[2018-01-11 15:00] VITALS: BP 162/85
--- NOTE | 2018-01-11 15:01 | PDOC3 ---
Discharge Summary Visit Information: Date of Admission: Jan 08, 2018 Date of Discharge: Jan 11, 2018 Admitting Diagnosis: UTI, AMS Final Diagnosis Problems Medical Problems: (1) Delirium due to another medical condition Status: Acute Problems: (1) Urinary tract infection Qualifiers: Qualified Codes: N30.00 - Acute cystitis without hematuria (2) Dementia Qualifiers: Qualified Codes: G30.9 - Alzheimer's disease, unspecified; F02.81 - Dementia in other diseases classified elsewhere with behavioral disturbance (3) Dehydration (4) Dementia in Alzheimer's disease with delusions Brief Hospital Course: Allergies: Allergies Coded Allergies Type Severity Reaction Last Updated Verified Penicillins Allergy Intermediate 01/10/18 Yes acetaminophen Allergy Intermediate 01/10/18 Yes amitriptyline Allergy Intermediate 01/10/18 Yes aspirin Allergy Intermediate 01/10/18 Yes caffeine Allergy Intermediate 01/10/18 Yes codeine Allergy Intermediate 01/10/18 Yes cyclobenzaprine Allergy Intermediate 01/10/18 Yes fentanyl Allergy Intermediate 01/10/18 Yes iodine Allergy Intermediate 01/10/18 Yes morphine Allergy Intermediate 01/10/18 Yes orphenadrine Allergy Intermediate 01/10/18 Yes oxycodone Allergy Intermediate 01/10/18 Yes pantoprazole Allergy Intermediate 01/10/18 Yes povidone-iodine Allergy Intermediate 01/10/18 Yes propoxyphene Allergy Intermediate 01/10/18 Yes soap Allergy Intermediate 01/10/18 Yes tetanus toxoid, adsorbed Allergy Intermediate 01/10/18 Yes Vital Signs: Vital Signs Date Time Temp Pulse Resp B/P (MAP) Pulse Ox O2 Delivery O2 Flow Rate FiO2 01/11/18 12:08 18 01/11/18 08:00 Room Air 01/11/18 05:09 98.3 108 166/82 (110) 99 Lab Results: Laboratory Tests Test 01/10/18 05:55 White Blood Count 7.8 x10^3/uL (4.0-11.0) Red Blood Count 4.09 x10^6/uL (3.50-5.40) Hemoglobin 12.7 g/dL (12.0-15.5) Hematocrit 37.9 % (36.0-47.0) Mean Corpuscular Volume 93 fL (79-100) Mean Corpuscular Hemoglobin 31 pg (25-35) Mean Corpuscular Hemoglobin Concent 34 g/dL (31-37) Red Cell Distribution Width 12.8 % (11.5-14.5) Platelet Count 167 x10^3/uL (140-400) Neutrophils (%) (Auto) 71 % (31-73) Lymphocytes (%) (Auto) 16 % (24-48) Monocytes (%) (Auto) 13 % (0-9) Eosinophils (%) (Auto) 1 % (0-3) Basophils (%) (Auto) 0 % (0-3) Neutrophils # (Auto) 5.5 x10^3uL (1.8-7.7) Lymphocytes # (Auto) 1.2 x10^3/uL (1.0-4.8) Monocytes # (Auto) 1.0 x10^3/uL (0.0-1.1) Eosinophils # (Auto) 0.0 x10^3/uL (0.0-0.7) Basophils # (Auto) 0.0 x10^3/uL (0.0-0.2) Sodium Level 135 mmol/L (136-145) Potassium Level 3.2 mmol/L (3.5-5.1) Chloride Level 102 mmol/L (98-107) Carbon Dioxide Level 28 mmol/L (21-32) Anion Gap 5 (6-14) Blood Urea Nitrogen 11 mg/dL (7-20) Creatinine 0.7 mg/dL (0.6-1.0) Estimated GFR (Cockcroft-Gault) 81.8 Glucose Level 118 mg/dL (70-99) Calcium Level 8.5 mg/dL (8.5-10.1) PE: Gen.: Alert, thin slightly pale no jaundiced, no apparent distress HEENT: Normocephalic atraumatic, no scleral icterus, oral mucosa pink and moist Neck: Supple, no lymphadenopathy, nontender Cardiovascular: Normal S1 and S2 no murmurs Pulmonary: Lungs are clear bilaterally with good air movement no respiratory distress Abdomen: Soft nontender non-distended, bowel sounds present no masses Extremities: No clubbing, cyanosis or edema Neuro: Alert and confused, LE weakness, PAL Skin: Warm, dry Brief Hospital Course: Ms. Welch is a 72 old female who had previously been diagnosed with UtI at [facility] no C/S performed, patient treated with keflex. Family noted worsening dementia and patient was brought to [facility] ED for medical clearance and [facility] admission. Miscommunication at some point, and once here family adamantly opposed to [facility] admission. UA negative here but rocephin IV given per history. Patient exhibited sundowning behaviors while here and although urine now clear and patient appears to be clinically improving from UTI her dementia and sundowning behaviors have not improved. Patient trying to climb over bedrails to check on "kids" one night. Family agreed to psychiatric evaluation, and Dr Booker recommends [facility] admission. Family has gone back and forth on this topic, apparently dependent upon who is involved in the discussion. I spent a great deal of time with the family two consecutive nights basically giving basic medical school lecture on alzheimers dementia, sundowning, and prognosis for hip fracture should she suffer a fall at home. Per Dr Booker's recommendations I strongly encouraged [facility] admission however family refuses and patient is confused. She is medically stable for discharge, will go home on PO vantin. Family understands they may return at any time and we will care for Ms Welch. After discussing risks/benefits of staying vs leaving--providing informed consent--patient will be discharged home as requested. Patient remains confused today, denies any discomfort Discharge Information: Condition at Discharge: Improved Follow Up: Weeks Disposition/Orders: D/C to Home Home Meds: Active Scripts Cefpodoxime Proxetil (CEFPODOXIME PROXETIL) 200 Mg Tablet, 1 TAB PO BID for uti , #14 TAB Prov:ADRIANA OGLESBY DO 01/11/18 Reported Medications Calcium Citrate/Vitamin D3 (CALCITRATE + VIT D CAPLET) 1 Each Tablet, 1 EACH PO DAILY for BONE HEALTH, TAB 01/08/18 Multivitamin (MULTIVITAMINS) 1 Each Tablet, 1 TAB PO DAILY for SUPPLEMENT, #30 TAB 2 Refills 01/08/18 Polyethylene Glycol 3350 (POLYETHYLENE GLYCOL 3350) 255 Gm Powder, 17 GM PO PRN DAILY PRN for CONSTIPATION 01/08/18 Duloxetine Hcl (DULOXETINE HCL) 30 Mg Capsule.dr, 30 MG PO DAILY for CHRONIC PAIN 01/08/18 Olanzapine (OLANZAPINE) 2.5 Mg Tablet, 2.5 MG PO BID for AGITATION 01/08/18 Discontinued Reported Medications Cephalexin (CEPHALEXIN) 500 Mg Capsule, 500 MG PO BID for UTI, #14 FAMILY REPORTS PT HAS RECEIVED 3 DOSES 01/08/18 Patient Instructions: Patient Instuctions Follow up PCP 3-5 days. Return if reconsider [facility] ADRIANA OGLESBY DO Jan 11, 2018 15:01
[2018-01-11] MEDS ORDERED: CEFP200T PO (15:05)
--- NOTE | 2018-01-11 17:34 | PDOC ---
Exam Note: Wood Note: Please also refer to the separate dictated note~for this date of service dictated separately.~Patient seen individually. Discussed the patient with Nursing staff reviewed the chart.~Reviewed interim history and current functioning. Reviewed vital signs,~Labs/ Radiology~and current medications noted below. Continue current treatment with the changes noted in the dictated addendum note Assessment: Vital Signs: Vital Signs Date Time Temp Pulse Resp B/P (MAP) Pulse Ox O2 Delivery O2 Flow Rate FiO2 01/11/18 12:08 18 01/11/18 08:00 Room Air 01/11/18 05:09 98.3 108 166/82 (110) 99 I&O Intake and Output 01/11/18 07:00 Intake Total 840 ml Balance 840 ml Intake Oral 840 ml # Voids 4 # Bowel Movements 3 Current Medications: Meds: Current Medications Sodium Chloride 1,000 ml @ 1,000 mls/hr 1X ONCE IV Last administered on at 20:14; Start 01/08/18 at 19:30; Stop 01/08/18 at 20:29; Status DC Ceftriaxone Sodium 1 gm/ Sodium Chloride 50 ml @ 100 mls/hr 1X ONCE IV Last administered on 01/08/18at 20:13; Start 01/08/18 at 19:30; Stop 01/08/18 at 19:59 ; Status DC Sodium Chloride 50 ml @ As Directed STK-MED ONCE .ROUTE ; Start 01/08/18 at 19: 32; Stop 01/08/18 at 19:33; Status DC Ceftriaxone Sodium (Rocephin) 1 gm STK-MED ONCE IV ; Start 01/08/18 at 19:32; Stop 01/08/18 at 19:33; Status DC Ondansetron HCl (Zofran) 4 mg PRN Q4HRS PRN IV NAUSEA/VOMITING; Start 01/08/18 at 19:45; Stop 01/09/18 at 19:44; Status DC Sodium Chloride 1,000 ml @ 0 mls/hr Q0M IV ; Start 01/08/18 at 19:45; Stop 01/09/18 at 19:37; Status DC Acetaminophen (Tylenol) 650 mg PRN Q4HRS PRN PO FEVER; Start 01/08/18 at 19:45 ; Stop 01/09/18 at 19:44; Status DC Olanzapine (ZyPREXA) 5 mg DAILY PO Last administered on 01/11/18at 09:41; Start 01/09/18 at 09:00 Ceftriaxone Sodium 1 gm/ Sodium Chloride 50 ml @ 100 mls/hr DAILY IV Last administered on 01/09/18at 13:18; Start 01/09/18 at 09:00; Stop 01/09/18 at 16:11 ; Status DC Ceftriaxone Sodium 1 gm/ Sodium Chloride 50 ml @ 100 mls/hr Q24H IV ; Start at 16:00; Stop 01/10/18 at 16:00; Status DC Sodium Chloride 1,000 ml @ 150 mls/hr Q6H40M IV Last administered on at 16:31; Start 01/09/18 at 15:55; Stop 01/09/18 at 22:34; Status DC Duloxetine HCl (Cymbalta) 30 mg 1X ONCE PO Last administered on 01/09/18at 21: 58; Start 01/09/18 at 21:30; Stop 01/09/18 at 21:35; Status DC Lactobacillus Rhamnosus (Culturelle) 1 cap BID PO Last administered on at 09:42; Start 01/10/18 at 09:00 Ceftriaxone Sodium 1 gm/ Sodium Chloride 50 ml @ 100 mls/hr Q24H IV Last administered on 01/11/18at 13:40; Start 01/10/18 at 13:00 Acetaminophen (Tylenol) 650 mg PRN Q6HRS PRN PO PAIN / TEMP Last administered on 01/10/18at 14:47; Start 01/10/18 at 14:30 Olanzapine (ZyPREXA ZYDIS) 2.5 mg PRN Q2HR PRN PO PSYCHOSIS Last administered on 01/11/18at 01:51; Start 01/10/18 at 23:00 Active Scripts Active Reported Calcitrate + Vit D Caplet (Calcium Citrate/Vitamin D3) 1 Each Tablet 1 Each PO DAILY Multivitamins (Multivitamin) 1 Each Tablet 1 Tab PO DAILY Polyethylene Glycol 3350 255 Gm Powder 17 Gm PO PRN DAILY PRN Duloxetine Hcl 30 Mg Capsule.dr 30 Mg PO DAILY Olanzapine 2.5 Mg Tablet 2.5 Mg PO BID Cephalexin 500 Mg Capsule 500 Mg PO BID FAMILY REPORTS PT HAS RECEIVED 3 DOSES I have reviewed the current psychotropics carefully including drug interactions. Risk benefit ratio favors no change other than as noted in my dictated progress note. Diagnosis: Problems: (1) Dementia in Alzheimer's disease with delusions (2) Dementia in Alzheimer's disease with depression (3) Dementia, vascular, with delusions (4) Dementia, vascular, with depression (5) Anxiety disorder GLADYS SINGH MD Jan 11, 2018 17:34
--- NOTE | 2018-01-11 19:45 | NUR ---
Patient in bed resting quietly with eyes closed. Already discharged and dressed waiting to be transferred to the car. Family at the bedside. Assisted the CHOCOLATE PACKER with transferring patient to the wheelchair and into the car without any distress or difficulty. Family very pleased and thanked the staff and left. Addendum: 01/12/18 at 0422 by LALO DEGROOT RN Saline Lock to the left forearm removed without difficulty at 0015 patient tolerate well. Site without any sign or symptoms of irritation or infection.
--- NOTE | 2018-01-12 12:53 | PN ---
DATE: 01/11/2018 This late entry, 01/11/2018, covers elements not covered in my initial note. SUBJECTIVE: I met with the patient in the evening. Per nursing report, the patient remains confused. Her family have decided against her being transferred to the [facility] because of the limited visiting hours and the 's fears that his might forget about him while she is there. I had been called by nursing staff middle of the previous night on account of the patient's active hallucinations within the context of her dementia and agitation. We had initiated Zyprexa p.r.n. and this seemed to have helped. REVIEW OF SYSTEMS: She is lying in bed, not very verbally interactive as I met with her. MENTAL STATUS EXAM: Oriented to herself. Insight, judgment, recent and remote memory, attention, concentration, fund of knowledge poor, consistent with her diagnoses. IMPRESSION: Major neurocognitive disorder, Alzheimer, vascular with delusion, depression, behavioral disturbance; anxiety disorder, unspecified. Rest unchanged. PLAN: No change from initial note. We will defer decision on placement inpatient versus more structured placement or back home to the family. Son and her daughter and the are all actively involved in the patient's care and we made our recommendations for inpatient psychiatric stabilization at this time which they are not agreeable to. GLADYS SINGH MD DR: JAMES/sonya JOB#: [id number] / [id number]
== END 2018-01-11 19:45 | disposition home or self-care (01) | DRG 690 ==
LOC: ER 16:38 → 1 SOUTH 20:00
PROVIDERS: ADMIT Neuromusculoskeletal Medicine & OMM; ATTEND Neuromusculoskeletal Medicine & OMM
DX: N30.00 Acute cystitis without hematuria (principal); F02.81 Dementia in other diseases classified elsewhere, unspecified severity, with behavioral disturbance; E86.0 Dehydration; E86.1 Hypovolemia; F01.50 Vascular dementia, unspecified severity, without behavioral disturbance, psychotic disturbance, mood disturbance, and anxiety; F32.9 Major depressive disorder, single episode, unspecified; F41.9 Anxiety disorder, unspecified; F63.9 Impulse disorder, unspecified; G30.9 Alzheimer's disease, unspecified; Z87.440 Personal history of urinary (tract) infections; Z88.6 Allergy status to analgesic agent; Z88.1 Allergy status to other antibiotic agents; Z88.0 Allergy status to penicillin; Z88.8 Allergy status to other drugs, medicaments and biological substances; Z91.018 Allergy to other foods; Z91.048 Other nonmedicinal substance allergy status
CPT/HCPCS: 36415; 71045; 80048; 80053; 81001; 82607; 83540; 83550; 83735; 85025; 93005; 96365; J0696; P9612; 99285-25; J7030